=== PATIENT | female | born 1980 | race African-American/Black ===

== ENCOUNTER 2019-01-23 04:02 | Emergency (ER) | payer MEDICAID, OTHER ==
[~2019-01-23] VITALS: Ht 170.2 cm; Wt 126.5 kg
[~2019-01-23 04:02] MED LIST: SUMA25TA3 PO
[2019-01-23 04:04] VITALS: BP 177/119
--- NOTE | 2019-01-23 05:02 | NUR ---
PT DC WITH D/C SUMMARY AND SCRIPTS. ALL QUESTIONS ANSWERED. PT AMBULATES TO REGISTRATION DESK WITH STEADY GAIT FOR D/C HOME. PT DENIES ANY OTHER NEEDS PERTAINING TO THIS VISIT.
== END 2019-01-23 05:04 ==
LOC: ED 04:50
DX: H60.502 Unspecified acute noninfective otitis externa, left ear (principal); I10 Essential (primary) hypertension
CPT/HCPCS: 99283